=== PATIENT | female | born 1945 | race Caucasian/White ===

== ENCOUNTER → 2017-07-08 | Outpatient (CLI) | payer MEDICARE ==
[~2017-07-08] MED LIST: DYAZIDE 25 MG-31 CAP PO; DYRENIUM 50MG C50 MG; DYRENIUM 50MG C50 MG PO; GINKGO3 PO; GLUCOSAMINE & C1 CA1 PO; MOBIC 7.5MG7.5 MG PO; OCUVITE ADULT 51 SGL PO; SYNTHROID0.05 MG/TA PO; VITAMIN D 1001000 IU PO
== END ==
LOC: COL.RAD 10:35
DX: R22.41 Localized swelling, mass and lump, right lower limb (principal)

== ENCOUNTER → 2018-06-22 | Outpatient (CLI) | payer MEDICARE | LOC: COL.RAD 08:29 | DX: K76.0 Fatty (change of) liver, not elsewhere classified (principal); K59.00 Constipation, unspecified; R12 Heartburn; R11.0 Nausea ==

== ENCOUNTER → 2018-07-07 | Outpatient (CLI) | payer MEDICARE | LOC: COL.RAD 09:12 | DX: K44.9 Diaphragmatic hernia without obstruction or gangrene (principal); K59.00 Constipation, unspecified; R19.7 Diarrhea, unspecified; R53.82 Chronic fatigue, unspecified | CPT/HCPCS: A9537 ==

== ENCOUNTER → 2018-07-19 | Outpatient (CLI) | payer MEDICARE | LOC: COL.RAD 07-13 15:50 | DX: K44.9 Diaphragmatic hernia without obstruction or gangrene (principal); R53.82 Chronic fatigue, unspecified; K59.00 Constipation, unspecified; R19.7 Diarrhea, unspecified | CPT/HCPCS: A9541 ==

== ENCOUNTER → 2019-03-31 | Outpatient (CLI) | payer MEDICARE | LOC: COL.RAD 07:53 | DX: M50.10 Cervical disc disorder with radiculopathy, unspecified cervical region (principal); M48.061 Spinal stenosis, lumbar region without neurogenic claudication; M51.16 Intervertebral disc disorders with radiculopathy, lumbar region; M47.22 Other spondylosis with radiculopathy, cervical region; M47.26 Other spondylosis with radiculopathy, lumbar region ==

== ENCOUNTER → 2020-04-23 | Outpatient (CLI) | payer MEDICARE ==
[~2020-04-23] MED LIST changes: +ALDACTONE 25MG25 M1 PO
== END ==
LOC: ZCOL.LAB 14:34
DX: M79.89 Other specified soft tissue disorders (principal); M79.604 Pain in right leg

== ENCOUNTER → 2020-10-25 | Outpatient (CLI) | payer MEDICARE | LOC: MC.RAD 13:47 | DX: N63.10 Unspecified lump in the right breast, unspecified quadrant (principal) ==

== ENCOUNTER 2021-04-10 09:26 | Outpatient (RCR) | payer MEDICARE | END 2021-07-01 09:17 | disposition home or self-care (01) | LOC: WSC 09:26 | DX: H81.90 Unspecified disorder of vestibular function, unspecified ear (principal) ==

== ENCOUNTER 2021-08-21 13:35 | Emergency (ER) | payer MEDICARE ==
[~2021-08-21] VITALS: Ht 160 cm; Wt 122.7 kg
[2021-08-21 14:13] LABS: BASO # 0.1 K/mm3 (0.0-0.2); BASO % 0.9 % (0.0-2.0); EOS # 0.2 K/mm3 (0.0-0.7); EOS % 3.3 % (0.0-4.0); GRAN # 3.5 K/mm3 (1.4-6.5); GRAN % 53.3 % (42.2-75.2); HEMATOCRIT 37.6 % (37.0-47.0); HEMOGLOBIN 12.5 g/dl (12.5-16.0); LYMPH # 2.2 K/mm3 (1.2-3.4); LYMPH % 33.3 % (20.0-51.0); MEAN CELL VOLUME 91 fl (80.0-100.0); MEAN CORPUSCULAR HEMOGLOBIN 30 pg (27-31); MEAN CORPUSCULAR HGB CONC 33 g/dl (33.0-37.0); MEAN PLATELET VOLUME 9.7 fl (7.4-10.4); MONO # 0.6 K/mm3 (0.1-0.6); MONO % 8.7 % (1.7-9.3); PLATELET COUNT 228 K/mm3 (130-400); RED BLOOD COUNT 4.12 M/mm3 (4.10-5.30); REDCELL DISTRIBUTION WIDTH-CV 14.5 % (11.5-14.5)
[2021-08-21 14:30] LABS: LIPASE 37 U/L (8-78)
[2021-08-21 14:53] LABS: TSH w REFLEX 1.902 uIU/mL (0.350-4.940)
[2021-08-21 14:59] LABS: TROPONIN-I < 0.010 ng/mL (0.00-0.033)
[2021-08-21] MEDS ORDERED: NORVASC 5MG5 MG/TAB PO (16:15)
[2021-08-21 16:28] LABS: ALBUMIN 3.7 gm/dL (3.4-4.8); BILIRUBIN,TOTAL 0.5 mg/dL (0.2-1.2); CALCIUM 9.5 mg/dL (8.4-10.2); CREATININE, serum 0.71 mg/dL (0.57-1.11)
[2021-08-21 16:34] LABS: COLLECTION METHOD CLEAN CATCH
[2021-08-21 16:47] LABS: PH 7 (5-8); URINE APPEARANCE Clear (CLEAR/HAZY); URINE BACTERIA None Seen (NONE SEEN); URINE BILIRUBIN Negative (NEGATIVE); URINE BLOOD Negative (NEGATIVE); URINE COLOR Yellow (YELLOW); URINE GLUCOSE Negative (NEGATIVE); URINE KETONE Negative (NEGATIVE); URINE LEUKOCYTE ESTERASE Negative (NEGATIVE); URINE NITRATE Negative (NEGATIVE); URINE PROTEIN(semi-quant) Negative (NEGATIVE); URINE RBC 0-2 /hpf (0-2); URINE UROBILINOGEN Negative (NEGATIVE)
[2021-08-21 17:15] VITALS: BP 196/98; PULSE 82; TEMP 97.9
== END 2021-08-21 17:00 | disposition home or self-care (01) ==
LOC: COL.ER 13:35
PROVIDERS: Emergency Medicine
DX: R53.83 Other fatigue (principal); R00.2 Palpitations; I10 Essential (primary) hypertension; I49.1 Atrial premature depolarization; E03.9 Hypothyroidism, unspecified; E11.9 Type 2 diabetes mellitus without complications; I50.9 Heart failure, unspecified; Z20.822 Contact with and (suspected) exposure to COVID-19; Z87.891 Personal history of nicotine dependence; Z79.890 Hormone replacement therapy; Z79.899 Other long term (current) drug therapy

== ENCOUNTER → 2023-06-16 | Outpatient (CLI) | payer MEDICARE ==
[~2023-06-16] MED LIST changes: +NORVASC 5MG5 MG/TAB PO
== END ==
LOC: MHCPAIN 10:37
DX: M47.816 Spondylosis without myelopathy or radiculopathy, lumbar region (principal); M48.061 Spinal stenosis, lumbar region without neurogenic claudication; M54.16 Radiculopathy, lumbar region; E11.9 Type 2 diabetes mellitus without complications; I10 Essential (primary) hypertension
CPT/HCPCS: G0463

== ENCOUNTER → 2023-12-21 | Outpatient (CLI) | payer MEDICARE | LOC: MHCPAIN 13:04 | DX: M48.062 Spinal stenosis, lumbar region with neurogenic claudication (principal); M47.816 Spondylosis without myelopathy or radiculopathy, lumbar region; M41.86 Other forms of scoliosis, lumbar region; Z79.84 Long term (current) use of oral hypoglycemic drugs; E11.9 Type 2 diabetes mellitus without complications; I10 Essential (primary) hypertension | CPT/HCPCS: G0463 ==

== ENCOUNTER → 2023-12-31 | Outpatient (CLI) | payer MEDICARE ==
[~2023-12-31] MED LIST changes: +Iohexol 300 - 10 ML VIAL ONE; +Lidocaine PF 2% (20 MG/ML) 2 ML VIAL ONE
== END ==
LOC: MHCPAIN 09:17
DX: M54.16 Radiculopathy, lumbar region (principal); M47.816 Spondylosis without myelopathy or radiculopathy, lumbar region; M41.26 Other idiopathic scoliosis, lumbar region
CPT/HCPCS: J1100; Q9967